=== PATIENT | female | born 1950 | race Caucasian/White ===

== ENCOUNTER 2016-08-31 09:35 | Outpatient (CLI) | payer OTHER | END 2016-08-31 09:36 | disposition home or self-care (01) | DX: R42 Dizziness and giddiness (principal); R53.83 Other fatigue ==

== ENCOUNTER 2017-02-20 10:03 | Outpatient (CLI) | payer OTHER ==
--- NOTE | 2017-02-21 17:14 | Mammography Report ---
DIGITAL SCREENING MAMMOGRAM: 02/20/2017 CLINICAL INDICATION: A 66-year-old nulliparous patient for screening. COMPARISON: 11/2013 TECHNIQUE: Routine CC and MLO projections were obtained of the breasts. FINDINGS: Scattered fibroglandular tissue is present within the breasts. There are no dominant mass es, suspicious microcalcifications, or secondary signs of malignancy. In comparison to the previous studies, there are no significant changes. ASSESSMENT: NO MAMMOGRAPHIC EVIDENCE OF MALIGNANCY. NO SIGNIFICANT INTERVAL CHANGES. RECOMMENDATION: Screening mammography is recommended annually. BIRADS category 1 - negative. STANDARD QUALIFYING STATEMENTS 1. This examination was reviewed with the aid of Computed-Aided Detection (CAD). 2. A negative or benign imaging report should not delay biopsy if clinically suspicious findings are present. Consider surgical consultation if warranted. More than 5% of cancers are not identified b y imaging. 3. Dense breasts may obscure an underlying neoplasm. JOB #: [id number] EXT JOB #:[id number]
== END 2017-02-20 10:04 | disposition home or self-care (01) ==
LOC: DI.S 10:03
PROVIDERS: ATTEND Nurse Practitioner Family
DX: Z12.31 Encounter for screening mammogram for malignant neoplasm of breast (principal)
CPT/HCPCS: 77067

== ENCOUNTER 2017-02-27 09:58 | Outpatient (CLI) | payer OTHER | END 2017-02-27 09:59 | disposition home or self-care (01) | LOC: SC 09:58 | PROVIDERS: ATTEND Internal Medicine Pulmonary Disease | DX: G47.10 Hypersomnia, unspecified (principal); G47.9 Sleep disorder, unspecified; R06.83 Snoring | CPT/HCPCS: 99203; 99212 ==

== ENCOUNTER 2018-11-27 12:46 | Outpatient (CLI) | payer MEDICARE, OTHER | END 2018-11-27 12:47 | disposition short-term general hospital (02) | LOC: EMS 12:46 | PROVIDERS: ATTEND Surgery | DX: R42 Dizziness and giddiness (principal); R25.2 Cramp and spasm; R11.0 Nausea | CPT/HCPCS: A0425; A0429 ==

== ENCOUNTER 2019-03-02 18:48 | Outpatient (CLI) | payer MEDICARE, OTHER | END 2019-03-02 18:49 | disposition critical access hospital (66) | LOC: EMS 18:48 | PROVIDERS: ATTEND Surgery | DX: M54.5 Low back pain (principal) | CPT/HCPCS: A0425; A0427 ==

== ENCOUNTER 2019-03-02 19:27 | Emergency (ER) | payer MEDICARE, OTHER ==
--- NOTE | 2019-03-02 19:54 | ED Physician Documentation ---
History of Present Illness - Stated complaint Stated Complaint: LOW BACK PAIN - Chief complaint Chief Complaint: Back Pain - Additonal information Additional information: This is a 68-year-old female with a history of anxiety, depression, past ectopic , who presents with lower back pain since 10AM. Patient states she was sitting down and putting on her shoes when she went forward and felt a ripping pain across her lower back. Pain was severe, she had to lay down flat for it to sam. Since then she is been unable to walk. She was unable to get up to use bathroom so she urinated on several towels that her provided her with. Her pain did not get better so EMS was called, they gave her 50 mcg of fentanyl twice in route. Patient denies any weakness or numbness in her legs. She did note that she had urinary leakage throughout the day, and now feels that she cannot urinate. No fecal incontinence. She states she had a episode of severe back pain in the past once and it resolved after lying on the ground for mu ltiple days. She denies any dysuria, the pain is triggered with movements and with palpation. She denies any chest pain or shortness of breath. Review of Systems Constitutional: denies: Fever Cardiac: denies: Chest pain / pressure Respiratory: denies: Dyspnea GI: denies: Abdominal Pain : denies: Dysuria Musculoskeletal: reports: Back pain Neurologic: denies: Focal weakness PD PAST MEDICAL HISTORY - Past Medical History Past Medical History: Yes [employer] WORK[employer]: Ectopic : Kidney stones Psych: Depression, Anxiety - Past Surgical History Past Surgical History: Yes General: Appendectomy /[employer] WORKER: Other - Present Medications Home Medications: Ambulatory Orders Medication Instructions Recorded Confirmed Venlafaxine [Effexor] 75 mg PO BID PRN 03/02/19 03/02/19 - Allergies Allergies/Adverse Reactions: Allergies Allergy/AdvReac Type Severity Reaction Status Date / Time minocycline Allergy Intermediate Edema Verified 03/02/19 19:36 - Social History Does the pt smoke?: No Smoking Status: Never smoker Does the pt drink ETOH?: Yes Does the pt have substance abuse?: No - Immunizations Immunizations are current?: Yes PD ED PE NORMAL - Vitals Vital signs reviewed: Yes - General General: Alert and oriented X 3 - HEENT HEENT: PERRL - Neck Neck: Supple, no meningeal sign - Cardiac Cardiac: RRR, No murmur - Respiratory Respiratory: Clear bilaterally - Abdomen Abdomen: Soft, Non tender, Non distended - Back Back: Other (There is tenderness palpation in the L2-L5 region both in the midline but more so in the bilateral paraspinous region. Patient has good passive range of motion of her legs up to nearly 90 degrees bilaterally with no pain shooting down her legs.5 out of 5 strength with ankle flexion and dorsiflexion, sensation intact light touch over the entire bilateral lower extremities. Leaning forward even 5 degrees causes extreme pain and patient cannot tolerate this.) - Derm Derm: Warm and dry - Extremities Extremities: No deformity - Neuro Neuro: Alert and oriented X 3, No motor deficit, No sensory deficit - Psych Psych: Normal mood, Normal affect Results - Vitals Vitals: Vital Signs - 24 hr 03/02/19 03/02/19 03/02/19 19:28 20:59 21:58 Temperature 36.7 C 36.6 C Heart Rate 54 L 57 L 56 L Respiratory 16 18 12 Rate Blood Pressure 153/72 H 139/68 H 139/71 H O2 Saturation 100 100 100 03/02/19 22:42 Temperature 36.7 C Heart Rate 64 Respiratory 16 Rate Blood Pressure 132/71 H O2 Saturation 96 Oxygen O2 Source Room air - Labs Labs: Laboratory Tests 03/02/19 03/02/19 03/02/19 20:30 20:30 20:30 WBC 6.6 RBC 4.75 Hgb 14.1 Hct 43.2 MCV 90.9 MCH 29.7 MCHC 32.6 RDW 14.0 Plt Count 272 MPV 9.6 Neut # (Auto) 3.4 Lymph # (Auto) 2.4 [place] # (Auto) 0.7 Eos # (Auto) 0.1 Baso # (Auto) 0.0 Absolute Nucleated RBC 0.00 Nucleated RBC % 0.0 PT 11.3 INR 1.0 Sodium 142 Potassium 3.8 Chloride 108 Carbon Dioxide 25 Anion Gap 9.0 BUN 15 Creatinine 0.8 Estimated GFR (MDRD) 72 L Glucose 104 H Calcium 9.0 Total Bilirubin 1.0 AST 32 ALT 31 Alkaline Phosphatase 57 Total Protein 6.5 L Albumin 3.9 Globulin 2.6 Albumin/Globulin Ratio 1.5 Lipase 34 Urine Color Urine Clarity Urine pH Ur Specific [place] Urine Protein Urine Glucose (UA) Urine Ketones Urine Occult Blood Urine Nitrite Urine Bilirubin Urine Urobilinogen Ur Leukocyte Esterase Ur Microscopic Review 03/02/19 21:50 WBC RBC Hgb Hct MCV MCH MCHC RDW Plt Count MPV Neut # (Auto) Lymph # (Auto) [place] # (Auto) Eos # (Auto) Baso # (Auto) Absolute Nucleated RBC Nucleated RBC % PT INR Sodium Potassium Chloride Carbon Dioxide Anion Gap BUN Creatinine Estimated GFR (MDRD) Glucose Calcium Total Bilirubin AST ALT Alkaline Phosphatase Total Protein Albumin Globulin Albumin/Globulin Ratio Lipase Urine Color YELLOW Urine Clarity CLEAR Urine pH 8.0 H Ur Specific [place] 1.020 Urine Protein NEGATIVE Urine Glucose (UA) NEGATIVE Urine Ketones NEGATIVE Urine Occult Blood NEGATIVE Urine Nitrite NEGATIVE Urine Bilirubin NEGATIVE Urine Urobilinogen 0.2 (NORMAL) Ur Leukocyte Esterase NEGATIVE Ur Microscopic Review NOT INDICATED - Rads (name of study) CT abd/pelvis Radiology: Other (Distended urinary bladder, otherwise no acute intra-abdominal abnormality, no fracture or's significant spine abnormality seen) PD MEDICAL DECISION MAKING - ED course Complexity details: considered differential (Back spasm, back strain, cauda equina, urinary tension, radiculopathy) ED course: Patient arrives and is in severe pain with any movement. She has good passive range of motion of both legs, and full strength with ankle dorsiflexion and plantarflexion, sensation is intact light touch and rectal tone is normal. Patient feels that she has a distended bladder and her bladder scan did show greater than 400 mL, and she was unable to urinate despite multiple tries. CT scan shows no obvious acute abnormalities with a spine, does show distended bladder. Patient received midazolam for her back pain here, when she is laying still her pain is well controlled, but with any movement she is in severe pain and she is unable to flex forward even a small amoint. Given her urinary retention and report of incontinence, I am concerned for cauda equina or spinal cord compression, I called the [facility] emergency department and spoke with Dr. Wilson who accepted the patient in transfer to obtain MRI. Patient and her are in agreement with this plan, she was transferred via ALS as she needs pain control. Departure - Departure Disposition: 02 Transfer Acute Care Hosp Clinical Impression: Urinary retention Lower back pain Qualifiers: Chronicity: acute Back pain laterality: bilateral Sciatica presence: without sciatica Qualified Code(s): M54.5 - Low back pain Condition: Stable Discharge Date/Time: 03/02/19 22:55
[2019-03-02] MEDS ORDERED: MIDAZOLAM 2 MG/2 ML VIAL IVP STA (20:11)
[2019-03-02 20:40] LABS: BASOPHILS % (AUTO) 0.6 %; EOSINOPHILS # (AUTO) 0.1 10^3/uL (0.0-0.7); EOSINOPHILS % (AUTO) 1.2 %; HGB - HEMOGLOBIN 14.1 g/dL (12.0-16.0); LYMPHOCYTES # (AUTO) 2.4 10^3/uL (1.5-3.5); LYMPHOCYTES % (AUTO) 36.9 %; MEAN CORPUSCULAR HEMOGLOBIN 29.7 pg (27.0-31.0); MEAN CORPUSCULAR HGB CONC 32.6 g/dL (32.0-36.0); MEAN CORPUSCULAR VOLUME 90.9 fL (81.0-99.0); MEAN PLATELET VOLUME 9.6 fL (7.9-10.8); MONOCYTES # (AUTO) 0.7 10^3/uL (0.0-1.0); MONOCYTES % (AUTO) 9.8 %; NEUTROPHILS # (AUTO) 3.4 10^3/uL (1.5-6.6); NEUTROPHILS % (AUTO) 51.3 %; PLT - PLATELET COUNT 272 10^3/uL (130-450); RED BLOOD COUNT 4.75 10^6/uL (4.20-5.40); WHITE BLOOD COUNT 6.6 x10^3/uL (4.8-10.8)
[2019-03-02 20:49] LABS: PT - PROTHROMBIN TIME 11.3 secs (9.9-12.6)
[2019-03-02 20:50] LABS: ALBUMIN 3.9 g/dL (3.2-5.5); ALBUMIN/GLOBULIN RATIO 1.5 (1.0-2.2); CREATININE 0.8 mg/dL (0.4-1.0); TOTAL PROTEIN 6.5 g/dL (6.7-8.2)
--- NOTE | 2019-03-02 21:26 | CT Report ---
Reason: back/flank pain Procedure Date: 03/02/2019 Accession Number: [id number] / [id number] Procedure: CT - Abdomen/Pelvis WO CPT Code: FULL RESULT: EXAM: CT ABDOMEN AND PELVIS (CT KUB) EXAM DATE: 03/02/2019 08:50 PM. CLINICAL HISTORY: Back/flank pain. COMPARISONS: None. TECHNIQUE: Routine axial helical CT imaging was performed through the abdomen and pelvis without IV contrast. Reconstructions: Coronal and sagittal. In accordance with CT protocol optimization, one or more of the following dose reduction techniques were utilized for this exam: automated exposure control, adjustment of mA and/or KV based on patient size, or use of iterative reconstructive technique. FINDINGS: Lung Bases: Unremarkable. Right Kidney/Ureter: No stones, hydronephrosis, or hydroureter. No perinephric fat stranding. Left Kidney/Ureter: No stones, hydronephrosis, or hydroureter. No perinephric fat stranding. Other Solid Organs: Noncontrast images of the solid organs are grossly unremarkable. Gallbladder/Bile Ducts: Unremarkable. Peritoneal Cavity: Abdelrahman in the cecal region likely from appendectomy. The bowel is otherwise unremarkable. There is no free air or free fluid. Pelvic Organs: No bladder stones or wall thickening. Bladder is mildly distended. Noncontrast images of the visualized pelvic organs are unremarkable. Vasculature: Unremarkable. Other: None. IMPRESSION: Mildly distended urinary bladder, otherwise unremarkable exam. No CT evidence of urolithiasis. RADIA
[2019-03-02 22:03] LABS: BILIRUBIN,URINE NEGATIVE (NEGATIVE); GLUCOSE, URINE (UA) NEGATIVE (NEGATIVE); KETONES,URINE (UA) NEGATIVE (NEGATIVE); LEUKOCYTE ESTERASE, URINE NEGATIVE (NEGATIVE); NITRITE,URINE NEGATIVE (NEGATIVE); OCCULT BLOOD,URINE NEGATIVE (NEGATIVE); PROTEIN,URINE NEGATIVE (NEGATIVE); UROBILINOGEN,URINE 0.2 (NORMAL) E.U./dL (NORMAL)
[2019-03-02 22:05] LABS: CLARITY,URINE CLEAR (CLEAR)
[2019-03-02 22:43] VITALS: BP 132/71
== END 2019-03-02 22:55 | disposition short-term general hospital (02) ==
LOC: EDUNIT# → ED 19:27
DX: R33.9 Retention of urine, unspecified (principal); M54.5 Low back pain
CPT/HCPCS: 36415; 51702; 51798; 74176; 80053; 81001; 81003; 83690; 85025; 85610; 96374; 99284

== ENCOUNTER 2019-03-02 22:58 | Outpatient (CLI) | payer MEDICARE, OTHER | END 2019-03-02 22:59 | disposition short-term general hospital (02) | LOC: EMS 22:58 | PROVIDERS: ATTEND Surgery | DX: M54.5 Low back pain (principal) | CPT/HCPCS: A0425; A0426 ==

== ENCOUNTER 2021-05-16 21:23 | Outpatient (CLI) | payer MEDICARE, OTHER | END 2021-05-16 21:24 | disposition short-term general hospital (02) | LOC: EMS 21:23 | DX: R10.13 Epigastric pain (principal); R11.0 Nausea | CPT/HCPCS: A0425; A0427 ==

== ENCOUNTER 2022-11-01 06:25 | Outpatient (CLI) | payer MEDICARE, OTHER | END 2022-11-01 23:59 | disposition short-term general hospital (02) | LOC: EMS 06:25 | DX: R10.32 Left lower quadrant pain (principal); R11.0 Nausea; R39.89 Other symptoms and signs involving the genitourinary system | CPT/HCPCS: A0425; A0427 ==

== ENCOUNTER 2023-06-11 07:00 | Outpatient (CLI) | payer MEDICARE, OTHER ==
--- NOTE | 2023-06-11 13:37 | XRAY Report ---
PROCEDURE: Foot 3+V RT INDICATIONS: PAIN IN RIGHT FOOT TECHNIQUE: 3 views of the foot were acquired. COMPARISON: None. FINDINGS: Bones: Oblique mildly displaced shaft fracture of the fifth metatarsal. Fracture does not extend into the articular surface. No other fractures or dislocations. No suspicious bony lesions. Soft tissues: No suspicious soft tissue calcifications or masses. IMPRESSION: Mildly displaced oblique shaft fracture of the fifth metatarsal. Reviewed by: Taras Carter MD on 06/11/2023 1:36 PM [facility] Approved by: Taras Carter MD on 06/11/2023 1:36 PM [facility] Station ID: [id number]
== END 2023-06-11 23:59 | disposition home or self-care (01) ==
LOC: DI.S 07:00
PROVIDERS: ATTEND Registered Nurse
DX: S92.351A Displaced fracture of fifth metatarsal bone, right foot, initial encounter for closed fracture (principal)